=== PATIENT | female | born 1930 | race Caucasian/White ===

== ENCOUNTER 2020-03-29 16:00 | Inpatient (IN) | payer OTHER ==
--- NOTE | 2020-03-29 16:11 | PDOC.HOSPP ---
- Subjective Encounter Date: 03/29/20 Encounter Time: 09:00 Subjective: Patient undergoing EEG study. Family at bedside, has two more granddaughters that will be coming in today. Family would like to await EEG results before deciding how to proceed. Hospitalist ROS - Review of Systems ROS unobtainable: due to mental status - Exam General Appearance: ill appearing ENT: normocephalic atraumatic Heart: no murmur (irregular) Respiratory: CTAB, no rales Gastrointestinal: soft, non-tender Neurological: hemiplegia (left sided) Psychiatric: somnolent Hosp A/P (1) Acute CVA (cerebrovascular accident) Code(s): I63.9 - CEREBRAL INFARCTION, UNSPECIFIED Status: Acute (2) Atrial fibrillation Code(s): I48.91 - UNSPECIFIED ATRIAL FIBRILLATION Status: Acute (3) Hypertension Code(s): I10 - ESSENTIAL (PRIMARY) HYPERTENSION Status: Acute - Plan Patient admitted to IMCU for acute left hemiplegia, likely from underlying atrial fibrillation. She was started on cardizem 5mg gtt. Head CT without signs of acute bleed. Rocephin and azithromycin for concerns of left lung pneumonia. Started on D5. Given rectal aspirin, lovenox and lipitor. Patient currently having EEG performed. Family at bedside updated on patients guarded prognosis. They are interested in pursuing hospice measures, but would like to await final result of EEG before final decision.
[2020-03-29] MEDS ORDERED: Ondansetron PF 4 MG/2 ML Vial IVP PRN (16:14)
[2020-03-29] MEDS ORDERED: Scopolamine 1.5 mg/72 hour Patch TOP SCH (16:15)
[2020-03-29] MEDS ORDERED: Bisacodyl 10 MG SUPP PR PRN (17:50)
[2020-03-29] MEDS ORDERED: Morphine 2 MG/ML VIAL SLOW IVP PRN (17:50)
[2020-03-29] MEDS ORDERED: diphenhydrAMINE 50 MG/ML VIAL IVP SCH (18:00)
[2020-03-29] MEDS: Lorazepam 2 MG/ML VIAL SLOW IVP PRN ×2 (18:02→19:26)
[2020-03-29] MEDS: Morphine 2 MG/ML VIAL SLOW IVP PRN ×2 (19:27→22:44)
[2020-03-29] MEDS: Lorazepam 2 MG/ML VIAL SLOW IVP SCH (22:44)
[2020-03-30] MEDS: Morphine 2 MG/ML VIAL SLOW IVP PRN ×4 (02:16→14:27)
[2020-03-30] MEDS: Lorazepam 2 MG/ML VIAL SLOW IVP SCH ×6 (02:17→21:11)
[2020-03-31] MEDS: Lorazepam 2 MG/ML VIAL SLOW IVP SCH ×5 (01:21→17:09)
[2020-03-31 09:29] VITALS: BP 150/71; TEMP 96.1
[2020-03-31] MEDS: Morphine 2 MG/ML VIAL SLOW IVP PRN ×4 (10:04→18:08)
[2020-03-31] MEDS: Lorazepam 2 MG/ML VIAL SLOW IVP PRN ×4 (10:43→18:07)
[2020-03-31] MEDS: Morphine 2 MG/ML VIAL SLOW IVP SCH ×2 (13:36→17:12)
--- NOTE | 2020-04-01 14:37 | DIS ---
DATE OF ADMISSION: 03/29/2020 DATE OF DISCHARGE: 03/31/2020 DATE OF : 03/31/2020. PRINCIPAL DIAGNOSIS: Cardiorespiratory failure. SECONDARY DIAGNOSES: 1. Cerebral infarction. 2. Atrial fibrillation. 3. Hypertension. 4. Possible pneumonitis. COMPLICATIONS: None. ADVERSE REACTIONS: None. PROCEDURES: None. HOSPITAL COURSE: The patient was admitted to inpatient hospice after suffering what looks like an acute CVA. The patient was admitted after being found down at her living facility. While in the ER, she was noticed to have sudden flaccidity in her left upper and lower extremity and repeat CT did not show any bleeding. She was felt to have an infarct. She was also noted to be in atrial fibrillation. She was also noted to have severe dehydration with acute kidney injury. It did not improve and family decided on inpatient hospice and she was admitted to inpatient hospice. She remained comfortable, but declined and on 03/31/2020. It was pronounced by the registered nurse. Body was released to the home. For full details, please see chart. Job ID: [id number]
== END 2020-03-31 19:28 | disposition expired | DRG 951 ==
LOC: NSY 16:00 → IMCU/EMU 16:14 → ONC 17:45
PROVIDERS: ADMIT Internal Medicine; ATTEND Internal Medicine
DX: Z51.5 Encounter for palliative care (principal); I63.9 Cerebral infarction, unspecified; J18.9 Pneumonia, unspecified organism; G81.94 Hemiplegia, unspecified affecting left nondominant side; N17.9 Acute kidney failure, unspecified; I48.91 Unspecified atrial fibrillation; I10 Essential (primary) hypertension; Z66 Do not resuscitate; Z20.828 Contact with and (suspected) exposure to other viral communicable diseases; E86.0 Dehydration; R09.2 Respiratory arrest
CPT/HCPCS: J1200; J2060; J2270